=== PATIENT | female | born 1995 | race Asian ===

== ENCOUNTER 2016-11-05 08:30 | Outpatient (RCR) | payer BC ==
[~2016-11-05 08:30] MED LIST: CALCIUM 600 PLU1 TAB PO; FISH OIL500 MG PO; IBU800 M1 PO; LIORESAL 1010 MG/TAB PO; MULTIPLE VITAMI1 TA5 PO; NEURONTIN400 MG/CAP PO; NORCO 325 MG-51 TAB PO; PERIDEX (CHLOR480 ML MM; TENORMIN 2525 MG/TAB PO
== END 2016-11-09 | disposition home or self-care (01) ==
LOC: MKS.ESL.OT
DX: G80.0 Spastic quadriplegic cerebral palsy (principal)

== ENCOUNTER → 2017-02-08 | Outpatient (RCR) | payer BC | END | disposition still patient (30) | LOC: MKS.ESL.OT | DX: G82.50 Quadriplegia, unspecified (principal) ==

== ENCOUNTER 2017-05-12 10:45 | Outpatient (RCR) | payer BC | END 2017-05-16 | LOC: MKS.ESL.OT | DX: G80.0 Spastic quadriplegic cerebral palsy (principal) ==

== ENCOUNTER 2017-06-02 10:45 | Outpatient (RCR) | payer BC | END 2017-07-21 13:46 | disposition still patient (30) | LOC: MKS.ESL.OT 10:45 | DX: G80.0 Spastic quadriplegic cerebral palsy (principal); Z73.6 Limitation of activities due to disability ==

== ENCOUNTER 2018-05-02 08:00 | Outpatient (RCR) | payer MEDICAID | END 2018-05-08 | disposition home or self-care (01) | LOC: MKS.ESL.OT | DX: G80.9 Cerebral palsy, unspecified (principal); M24.50 Contracture, unspecified joint; R63.4 Abnormal weight loss; Z79.899 Other long term (current) drug therapy ==

== ENCOUNTER 2018-08-03 16:00 | Outpatient (RCR) | payer MEDICAID | END 2018-08-07 | disposition home or self-care (01) | LOC: MKS.ESL.PT | DX: G80.1 Spastic diplegic cerebral palsy (principal) ==

== ENCOUNTER 2018-09-07 15:30 | Outpatient (RCR) | payer MEDICAID | END 2018-11-08 | disposition home or self-care (01) | LOC: MKS.ESL.PT | DX: G80.1 Spastic diplegic cerebral palsy (principal) ==

== ENCOUNTER → 2018-09-25 | Outpatient (CLI) | payer MEDICAID | LOC: COL.RAD 11:17 | DX: M41.05 Infantile idiopathic scoliosis, thoracolumbar region (principal) ==

== ENCOUNTER 2020-02-19 14:00 | Outpatient (RCR) | payer MEDICAID | END 2020-02-21 | disposition home or self-care (01) | LOC: MKS.ESL.OT | DX: G80.9 Cerebral palsy, unspecified (principal) ==

== ENCOUNTER 2020-05-06 14:00 | Outpatient (RCR) | payer MEDICAID | END 2020-05-26 | disposition home or self-care (01) | LOC: MKS.ESL.OT | DX: G80.9 Cerebral palsy, unspecified (principal) ==

== ENCOUNTER 2020-08-19 14:00 | Outpatient (RCR) | payer OTHER, MEDICAID | END 2020-08-25 | disposition home or self-care (01) | LOC: MKS.ESL.PT | DX: G80.9 Cerebral palsy, unspecified (principal) ==

== ENCOUNTER 2020-09-02 14:00 | Outpatient (RCR) | payer OTHER, MEDICAID | END 2020-09-08 | disposition home or self-care (01) | LOC: MKS.ESL.PT | DX: G80.9 Cerebral palsy, unspecified (principal) ==

== ENCOUNTER 2020-10-23 14:00 | Outpatient (RCR) | payer OTHER, MEDICAID | END 2020-12-15 | disposition home or self-care (01) | LOC: MKS.ESL.PT | DX: G80.9 Cerebral palsy, unspecified (principal) ==

== ENCOUNTER 2021-05-20 14:45 | Outpatient (RCR) | payer OTHER, MEDICAID | END 2021-05-25 | disposition home or self-care (01) | LOC: MKS.ESL.PT | DX: G80.9 Cerebral palsy, unspecified (principal) ==

== ENCOUNTER 2021-09-01 14:00 | Outpatient (RCR) | payer MEDICAID | END 2021-09-04 | disposition home or self-care (01) | LOC: MKS.ESL.PT | DX: G80.9 Cerebral palsy, unspecified (principal) ==

== ENCOUNTER 2021-10-27 14:00 | Outpatient (RCR) | payer MEDICAID | END 2021-11-02 | disposition home or self-care (01) | LOC: MKS.ESL.PT | DX: G80.9 Cerebral palsy, unspecified (principal) ==

== ENCOUNTER 2021-12-01 14:00 | Outpatient (RCR) | payer MEDICAID | END 2021-12-03 | LOC: MKS.ESL.PT | DX: G80.9 Cerebral palsy, unspecified (principal) ==

== ENCOUNTER 2021-12-29 14:00 | Outpatient (RCR) | payer MEDICAID | END 2022-01-02 | disposition home or self-care (01) | LOC: MKS.ESL.PT | DX: G80.9 Cerebral palsy, unspecified (principal) ==

== ENCOUNTER 2022-10-27 08:50 | Day surgery (SDC) | payer MEDICAID ==
[~2022-10-27] VITALS: Ht 139.7 cm; Wt 37.3 kg
[2022-10-27 09:25] VITALS: BP 121/91; PULSE 80; TEMP 98
[2022-10-27] MEDS ORDERED: PRIL40 PO (09:35)
[2022-10-27] MEDS ORDERED: TOPAMAX 25MG25 M1 PO (09:36)
[2022-10-27] MEDS ORDERED: SINGULAIR 110 MG/TAB PO (09:36)
[2022-10-27] MEDS ORDERED: TEMOVATE50TS TOP (09:37)
[2022-10-27] MEDS ORDERED: JOLESSA 30 MCG-1 TAB PO (09:38)
[2022-10-27] MEDS ORDERED: LOPROX TOP (09:38)
[2022-10-27] MEDS ORDERED: TRIAM OI 0.1 454 TOP (09:39)
[2022-10-27] MEDS ORDERED: IMITREX50 MG PO (09:40)
[2022-10-27 10:30] VITALS: BP 113/86; PULSE 83; TEMP 98
[2022-10-27 10:45] VITALS: BP 104/68; PULSE 99
[2022-10-27 11:00] VITALS: BP 103/81; PULSE 99
[2022-10-27 11:15] VITALS: BP 108/80; PULSE 98
--- NOTE | 2022-10-27 11:26 | NUR ---
1030- PT RETURNS TO BAY 3 VIA CART. DUE TO PATIENT'S CEREBRAL PALSY, PT REMAINED ON CART IN THE BAY. AWAKE AND ALERT. RESPIRATIONS UNLABORED. DENIES NAUSEA AND ABDOMINAL PAIN. PATIENT HOOKED UP TO THE MONITOR AND VS OBTAINED. CALL LIGHT AT SIDE AND MOTHER AT SIDE. 1035- PT TOLERATING PUDDING AND JUICE WITHOUT NAUSEA OR DIFFICULTY SWALLOWING. 1056- DR. OLIVARES IN ROOM SPEAKING WITH PATIENT. 1110- D/C INSTRUCTIONS REVIEWED WITH PATIENT AND MOTHER. PT. VERBALIZES UNDERSTANDING AND A COPY PROVIDED IN THE D/C FOLDER. 1115- PT LIFTED BY MOTHER AND NURSE INTO HER OWN ELECTRIC W/C FROM HOME. 1120- PT D/C FROM UNIT TO THE WAITING ROOM AT THE PATIENT ENTRANCE. PT AND MOTHER AWAITING TRANSPORTATION FROM THE [facility]. PT LEFT UNIT IN STABLE CONDITION.
== END 2022-10-27 11:20 | disposition home or self-care (01) ==
LOC: SDCO 08:50
DX: K22.89 Other specified disease of esophagus (principal); Q40.8 Other specified congenital malformations of upper alimentary tract; K21.9 Gastro-esophageal reflux disease without esophagitis
CPT/HCPCS: J2704; J3010; J7120

== ENCOUNTER → 2022-12-09 | Outpatient (CLI) | payer MEDICAID ==
[~2022-12-09] MED LIST changes: +IMITREX50 MG PO; +JOLESSA 30 MCG-1 TAB PO; +LOPROX TOP; +PRIL40 PO; +SINGULAIR 110 MG/TAB PO; +TEMOVATE50TS TOP; +TOPAMAX 25MG25 M1 PO; +TRIAM OI 0.1 454 TOP
== END ==
LOC: COL.RAD 12-08 07:30
DX: Q04.6 Congenital cerebral cysts (principal)

== ENCOUNTER 2023-08-31 08:57 | Outpatient (RCR) | payer MEDICAID | END 2023-09-04 | disposition home or self-care (01) | LOC: MKS.ESL.PT | DX: G80.9 Cerebral palsy, unspecified (principal) ==

== ENCOUNTER 2023-09-30 14:30 | Outpatient (RCR) | payer MEDICAID | END 2023-10-05 | disposition home or self-care (01) | LOC: MKS.ESL.PT | DX: G80.9 Cerebral palsy, unspecified (principal) ==

== ENCOUNTER 2023-12-02 13:00 | Outpatient (RCR) | payer MEDICAID | END 2023-12-04 | disposition home or self-care (01) | LOC: MKS.ESL.PT | DX: G80.9 Cerebral palsy, unspecified (principal) ==